=== PATIENT | female | born 1955 | race Caucasian/White ===

== ENCOUNTER → 2021-02-06 12:56 | Outpatient (CLI) | payer MEDICARE ==
[2021-02-06 13:21] LABS: BASOPHILS 0.2 % (0-2); EOSINOPHILS 0 % (0-7); HEMATOCRIT 48.9 % (36.0-48.0); HEMOGLOBIN 16.6 g/dL (12-16); LYMPHOCYTES 24.9 % (15-50); MCH 30.5 pg (26.0-34.0); MCHC 34.1 g/dL (31.0-37.0); MCV 89.5 fL (80.0-100.0); MONOCYTES 6.2 % (2-11); NEUTROPHILS 68.7 % (40-80); PLATELET COUNT 344 10x3/uL (130-400); RBC 5.46 10x6/uL (4.00-5.40); RDW 13.4 % (11.5-14.5); WBC 7.8 10x3/uL (4.8-10.8)
== END | disposition home or self-care (01) ==
LOC: D.LAB 12:56
PROVIDERS: ATTEND Internal Medicine Pulmonary Disease
DX: J82.83 Eosinophilic asthma (principal)